=== PATIENT | male | born 1985 | race Caucasian/White ===

== ENCOUNTER 2016-09-04 19:52 | Emergency (ER) | payer BC ==
[2016-09-04 20:54] LABS: HEMOGLOBIN 14.5 gm/dl (14.0-17.5); RED BLOOD COUNT 4.73 M/UL (4.20-5.50); WHITE BLOOD COUNT 6.8 K/UL (4.5-11.0)
[2016-09-04 21:09] LABS: BUN/CREATININE RATIO 12 (0-10)
[2016-10-02] MEDS ORDERED: CLARITIN10 M2 PO (08:30)
[2016-10-02] MEDS ORDERED: ZOFRAN4 MG PO (08:31)
== END 2016-09-04 22:03 | disposition home or self-care (01) ==
LOC: ER1 19:52
PROVIDERS: Physician Assistant Medical
DX: R10.9 Unspecified abdominal pain (principal); R11.0 Nausea; R19.7 Diarrhea, unspecified; K21.9 Gastro-esophageal reflux disease without esophagitis; F17.290 Nicotine dependence, other tobacco product, uncomplicated; K76.9 Liver disease, unspecified
CPT/HCPCS: 36415; 80053; 81001; 82150; 83690; 85025; 96361; 96374; 99284; J2405; J7050; Q9962

== ENCOUNTER → 2016-10-02 | Day surgery (SDC) | payer BC ==
[~2016-10-02] VITALS: Ht 165.1 cm; Wt 66.2 kg
[~2016-10-02] MED LIST: CLARITIN10 M2 PO; ZOFRAN4 MG PO
== END | disposition home or self-care (01) ==
LOC: OR 07:44
PROVIDERS: Internal Medicine Gastroenterology
PROC: 0DBE8ZX Excision of Large Intestine, Via Natural or Artificial Opening Endoscopic, Diagnostic (ICD-10-PCS; 2016-10-02)
PROC: 0DBB8ZX Excision of Ileum, Via Natural or Artificial Opening Endoscopic, Diagnostic (ICD-10-PCS; principal; 2016-10-02 12:15)
DX: K52.9 Noninfective gastroenteritis and colitis, unspecified (principal); K21.9 Gastro-esophageal reflux disease without esophagitis; F17.220 Nicotine dependence, chewing tobacco, uncomplicated; Z82.49 Family history of ischemic heart disease and other diseases of the circulatory system; Z79.899 Other long term (current) drug therapy
CPT/HCPCS: J2250; J3010; J7030

== ENCOUNTER → 2020-05-03 | Outpatient (CLI) | payer BC ==
[~2020-05-03] MED LIST changes: +IBUPROFEN800 MG PO; +K-DUR TAB 20 M20 MEQ PO; +KEFLEX CAP 500500 MG PO; +LODINE CAP 300300 MG PO; +ZOFRAN ODT 4 MG4 MG PO
[2020-05-03 12:03] LABS: HEMOGLOBIN 14.7 gm/dl (14.0-17.5); RED BLOOD COUNT 4.79 M/UL (4.20-5.50); WHITE BLOOD COUNT 4.6 K/UL (4.5-11.0)
[2020-05-03 12:23] LABS: BUN/CREATININE RATIO 9 (0-10)
== END ==
LOC: RAD 11:12
PROVIDERS: Nurse Practitioner Family
DX: R07.89 Other chest pain (principal); R53.83 Other fatigue; E83.52 Hypercalcemia; Z86.16 Personal history of COVID-19
CPT/HCPCS: 36415; 71046; 80053; 80061; 84436; 84443; 84480; 85025

== ENCOUNTER → 2020-06-01 | Outpatient (CLI) | payer BC | LOC: RAD 14:43 | DX: M54.2 Cervicalgia (principal) | CPT/HCPCS: 72050 ==